=== PATIENT | female | born 1985 | race Caucasian/White ===

== ENCOUNTER → 2017-06-30 | Outpatient (CLI) | payer BC | END | disposition home or self-care (01) | LOC: YCFC.O 10:30 | PROVIDERS: ATTEND Nurse Practitioner Family | DX: Z11.59 Encounter for screening for other viral diseases (principal) ==

== ENCOUNTER → 2017-11-19 | Outpatient (CLI) | payer BC ==
--- NOTE | 2017-11-20 15:16 | US ---
Exam: Bilateral lower extremity arterial Doppler sonogram CLINICAL HISTORY: Symptoms TECHNIQUE: Doppler sonographic evaluation of the right lower extremity was performed. FINDINGS: Right Submitted sonographic images reveal normal widely patent vessels with no significant stenosis. Normal flow velocities with multiphasic flow throughout the right lower extremity. The following peak systolic flow flow velocity measurements were obtained: Common femoral artery velocity equals 101 centimeters per second , triphasic. Superficial femoral artery velocity equals 65-81 centimeters per second , triphasic. Popliteal artery velocity equals 62.5 centimeters per second , triphasic. Peroneal artery velocity equals 51.4 centimeters per second , triphasic. Posterior tibial artery velocity equals 56 centimeters per second , triphasic. Dorsalis pedis artery velocity equals 29 centimeters per second , triphasic. IMPRESSION: Normal triphasic flow in the right lower extremity arteries with no significant stenosis. Electronically signed by: Juan Glass MD 11/20/2017 3:15 PM CDT
--- NOTE | 2017-11-20 15:17 | US ---
EXAM DESCRIPTION: Venous,Lower Extremity RT CLINICAL HISTORY: EDEMA COMPARISON: None Available. TECHNIQUE: Right lower extremity venous duplex FINDINGS: Doppler evaluation of the right lower extremity deep veins was performed. Normal color flow is seen in the common femoral, superficial femoral, profunda femoral and greater saphenous veins. Normal flow is seen in the popliteal vein and veins below the knee in the calf. Normal venous compressibility and flow augmentation. IMPRESSION: Negative for evidence of deep venous thrombosis on right lower extremity venous Doppler sonogram. Electronically signed by: Juan Glass MD 11/20/2017 3:15 PM CDT
== END ==
LOC: US 09:37
PROVIDERS: ATTEND Nurse Practitioner Family
DX: R60.9 Edema, unspecified (principal); I73.9 Peripheral vascular disease, unspecified

== ENCOUNTER → 2019-01-19 | Outpatient (CLI) | payer BC ==
--- NOTE | 2019-01-19 15:12 | RAD ---
EXAM: Knee,Right Complete CLINICAL HISTORY: Unstable knee COMPARISON STUDY: None. TECHNICAL: AP, lateral and sunrise views of the knee. FINDINGS: Views of the knee demonstrate no fracture or dislocation. There is no acute bone abnormality. There is no visible effusion. IMPRESSION: NEGATIVE RIGHT KNEE. Electronically signed by: Uriel Alonso MD 01/19/2019 3:09 PM CDT
--- NOTE | 2019-01-20 08:21 | US ---
EXAM DESCRIPTION: Soft Tissue,Extremity: ULTRASOUND. CLINICAL HISTORY: 33 years Female Unilateral leg edema. Clark's cyst right popliteal fossa. COMPARISON: None Available. TECHNIQUE: Transcutaneous scanning: Madison-scale and Doppler modes. FINDINGS: Muscle and fatty tissues identified. Hypoechoic serpiginous structures showing vascularity. No dominant solid mass or distinct cyst. No parenchymal edema or large calcifications. Overlying skin changes. Normal vascularity. IMPRESSION: No Clark's cyst seen in the right popliteal fossa. Electronically signed by: Farshad Alexander MD 01/20/2019 8:18 AM CDT
== END ==
LOC: US 11:04
PROVIDERS: ATTEND Nurse Practitioner Family
DX: R60.0 Localized edema (principal); M25.369 Other instability, unspecified knee